=== PATIENT | male | born 1980 | race Caucasian/White ===

== ENCOUNTER 2023-12-28 01:05 | Emergency (ER) | payer SELFPAY ==
[2023-12-28] MEDS: Penicillin V Potassium 500 MG Tab PO STA (02:36)
[2023-12-28] MEDS: Acetaminophen 500 MG Tab PO ONE (02:36)
[2023-12-28] MEDS: Ibuprofen 600 MG Tab PO ONE (02:36)
== END 2023-12-28 02:38 | disposition left against medical advice (07) ==
LOC: MW.ED 01:05
DX: K04.7 Periapical abscess without sinus (principal); S02.5XXA Fracture of tooth (traumatic), initial encounter for closed fracture
CPT/HCPCS: 99283